=== PATIENT | female | born 1975 | race Caucasian/White ===

== ENCOUNTER → 2023-11-07 | Outpatient (CLI) | payer BC, SELFPAY | END | disposition home or self-care (01) | LOC: LABSPEC 12:48 | PROVIDERS: Referring Provider Internal Medicine Hematology & Oncology; Visit Provider Internal Medicine Hematology & Oncology | DX: D47.2 Monoclonal gammopathy (principal) | CPT/HCPCS: 86850; 86900; 86901 ==